=== PATIENT | female | born 1945 | race African-American/Black ===

== ENCOUNTER 2017-07-15 06:06 | Inpatient (IN) | payer OTHER, MEDICARE ==
[2017-07-15] VITALS (14 sets, daily range): BP systolic 135–180; BP diastolic 68–80; PULSE 72–85; RESP 16–28; TEMP 97.9–98.8; O2SAT 85–99
[~2017-07-15] VITALS: Ht 152.4 cm; Wt 120.6 kg
[~2017-07-15 06:06] MED LIST: AMIT25TA20 PO; BUME1TAB PO; CARV25TA PO; GABA300C3 PO; GLIP5 PO; GLUC10TA3 PO
[2017-07-15] MEDS ORDERED: RESP: ALBUTEROL 2.5 MG/IPRATROPIUM 0.5 MG NEB (PRN) ONE (06:22)
[2017-07-15] MEDS ORDERED: AZIT250T3 PO (06:31)
[2017-07-15] MEDS ORDERED: PRAV40TA2 PO (06:31)
[2017-07-15] MEDS ORDERED: AMLO10TA2 PO (06:31)
[2017-07-15] MEDS ORDERED: TRAD5TAB PO (06:31)
[2017-07-15] MEDS ORDERED: GABA100C4 PO (06:31)
--- NOTE | 2017-07-15 06:35 | PD ---
HPI Chief Complaint: Respiratory Symptoms Time Seen by Provider: 06:30 Travel History International Travel<30 days: No Contact w/Intl Traveler<30days: No Traveled to known affect area: No History of Present Illness HPI Patient is a 72-year-old female who has last few days having shortness of breath wheezing saw her, her care doctor 2 days ago and was started on azithromycin Z-Adolfo. She is not improving it is not working says the family. Patient has a history of hypertension and diabetes but she does not have any lung pathology known history. She comes in descending to 82% on room air area she is immediately put on 4 L nasal cannula and started on a DuoNeb 3. She is short of breath but able to talk in full sentences. There is no signs of accessory muscle use. She has diffuse wheeze in all orantes. With possible basilar rales This could possibly be reactive airway to a virus or it could possibly be cardiac asthma caused by CHF. She had been on hydrochlorothiazide 50 mg but she has not been on that for a while she reports. She is on amlodipine as well as a sulfonylurea for her diabetes. She denies chest pain she does feel short of breath taking azithromycin without relief for her symptoms. I will start her with duo nebs but we'll work her up for CHF PFS Past Medical History Arthritis: Yes Autoimmune Disease: No Blood Disorders: No Heart Rhythm Problems: No Cancer: No Cardiac Catheterization: Yes Cardiovascular Problems: Yes High Cholesterol: No Chest Pain: Yes Congestive Heart Failure: Yes Cerebrovascular Accident: Yes (2004 NO RESIDUAL WEAKNESS) Coronary Artery Disease: Yes Diabetes: Yes Patient Takes Glucophage: No Diminished Hearing: No Endocrine: Yes (BORDERLINE DIABETIC) Glaucoma: No Genitourinary: No Hypertension: Yes Musculoskeletal: Yes Neurologic: Yes (NEUROPATHY) Psychiatric: No Respiratory: No Integumentary: Yes (CELLULITIS) Immunizations Current: Yes Myocardial Infarction: Yes (X2) Thyroid Disease: No Influenza Vaccination: No Menopausal: Yes Past Surgical History Abdominal Surgery: Yes AICD: No Appendectomy: Yes (AGE 8) Cardiac Surgery: No Section: Yes (X 2) Ear Surgery: No Endocrine Surgery: No Eye Surgery: No Genitourinary Surgery: No Gynecologic Surgery: No Oral Surgery: No Pacemaker: No Thoracic Surgery: No Other Surgery: Yes (APPENDECTOMY AT 5 YO, AT 26YO) Social History Alcohol Use: No Tobacco Use: No Substance Use: No Allergies-Medications (Allergen,Severity, Reaction): Coded Allergies: No Known Allergies (Verified Allergy, Unknown, 07/15/17) Reported Meds & Prescriptions Reported Meds & Active Scripts Active Reported Azithromycin 250 Mg Tab 250 Mg PO DAILY Pravastatin 40 Mg Tab 40 Mg PO DAILY Amlodipine (Amlodipine Besylate) 10 Mg Tab 10 Mg PO DAILY Gabapentin 100 Mg Cap 100 Mg PO HS Tradjenta (Linagliptin) 5 Mg Tab 5 Mg PO DAILY Carvedilol 25 mg (Carvedilol) 25 Mg Tab 25 Mg PO BID Glipizide 10 Mg Tab 10 Mg PO BID Review of Systems Except as stated in HPI: all other systems reviewed are Neg Respiratory: Positive: Shortness of Breath Physical Exam Narrative GENERAL: Appears short of breath however she does not seem septic or toxic SKIN: Warm and dry. HEAD: Atraumatic. Normocephalic. EYES: Pupils equal and round. No scleral icterus. No injection or drainage. ENT: No nasal bleeding or discharge. Mucous membranes pink and moist. NECK: Trachea midline. No JVD. CARDIOVASCULAR: Regular rate and rhythm. Blood pressure is 150/78 RESPIRATORY: No accessory muscle use. Diffuse wheeze in all orantes with possible bassilar rales possibly reactive inflammation versus cardiac asthma which is more likely GASTROINTESTINAL: Abdomen soft, non-tender, nondistended. Hepatic and splenic margins not palpable. MUSCULOSKELETAL: Extremities without clubbing, cyanosis, or edema. No obvious deformities. NEUROLOGICAL: Awake and alert. No obvious cranial nerve deficits. Motor grossly within normal limits. Five out of 5 muscle strength in the arms and legs. Normal speech. PSYCHIATRIC: Appropriate mood and affect; insight and judgment normal. Data Data Last Documented VS Vital Signs Date Time Temp Pulse Resp B/P (MAP) Pulse Ox O2 Delivery O2 Flow Rate FiO2 07/15/17 07:15 83 28 163/78 (106) 97 Nasal Cannula 3.00 07/15/17 06:15 98.8 Orders Orders Complete Blood Count With Diff (07/15/17 06:22) Comprehensive Metabolic Panel (07/15/17 06:22) Troponin I (07/15/17 06:22) Lipase (07/15/17 06:22) Urinalysis - C+S If Indicated (07/15/17 06:22) Chest, Single Ap (07/15/17 06:22) Albuterol-Ipratropium Neb (Duoneb Neb) (07/15/17 06:22) B-Type Natriuretic Peptide (07/15/17 06:30) Albuterol-Ipratropium Neb (Duoneb Neb) (07/15/17 06:45) Electrocardiogram (07/15/17 ) Furosemide Inj (Lasix Inj) (07/15/17 06:45) Nitroglycerin 2% Oint (Nitroglycerin 2% (07/15/17 06:45) Urinary Catheter Insert/Apply (07/15/17 06:52) Methylprednisolone So Succ Inj (Solumedr (07/15/17 07:15) Ceftriaxone Inj (Rocephin Inj) (07/15/17 07:30) Azithromycin Inj (Zithromax Inj) (07/15/17 07:30) Influenzae A/B Antigen (07/15/17 07:29) Admit Order (Ed Use Only) (07/15/17 07:53) Labs Laboratory Tests Test 07/15/17 06:25 07/15/17 06:32 07/15/17 06:45 White Blood Count 7.6 TH/MM3 Red Blood Count 4.09 MIL/MM3 Hemoglobin 12.3 GM/DL Hematocrit 36.6 % Mean Corpuscular Volume 89.4 FL Mean Corpuscular Hemoglobin 30.0 PG Mean Corpuscular Hemoglobin Concent 33.5 % Red Cell Distribution Width 15.6 % Platelet Count 216 TH/MM3 Mean Platelet Volume 8.2 FL Neutrophils (%) (Auto) 68.4 % Lymphocytes (%) (Auto) 14.1 % Monocytes (%) (Auto) 15.6 % Eosinophils (%) (Auto) 1.4 % Basophils (%) (Auto) 0.5 % Neutrophils # (Auto) 5.2 TH/MM3 Lymphocytes # (Auto) 1.1 TH/MM3 Monocytes # (Auto) 1.2 TH/MM3 Eosinophils # (Auto) 0.1 TH/MM3 Basophils # (Auto) 0.0 TH/MM3 CBC Comment DIFF FINAL Differential Comment Blood Urea Nitrogen 25 MG/DL Creatinine 2.15 MG/DL Random Glucose 77 MG/DL Total Protein 7.9 GM/DL Albumin 3.4 GM/DL Calcium Level 8.6 MG/DL Alkaline Phosphatase 89 U/L Aspartate Amino Transf (AST/SGOT) 18 U/L Alanine Aminotransferase (ALT/SGPT) 17 U/L Total Bilirubin 0.4 MG/DL Sodium Level 138 MEQ/L Potassium Level 4.0 MEQ/L Chloride Level 103 MEQ/L Carbon Dioxide Level 27.7 MEQ/L Anion Gap 7 MEQ/L Estimat Glomerular Filtration Rate 27 ML/MIN Troponin I 0.02 NG/ML Lipase 259 U/L B-Type Natriuretic Peptide 67 PG/ML Urine Color YELLOW Urine Turbidity CLEAR Urine pH 5.5 Urine Specific [place] 1.013 Urine Protein 100 mg/dL Urine Glucose (UA) NEG mg/dL Urine Ketones NEG mg/dL Urine Occult Blood MOD Urine Nitrite NEG Urine Bilirubin NEG Urine Urobilinogen LESS THAN 2.0 MG/DL Urine Leukocyte Esterase NEG Urine RBC 1 /hpf Urine WBC LESS THAN 1 /hpf Urine Squamous Epithelial Cells <1 /hpf Urine Amorphous Sediment OCC Urine Bacteria OCC /hpf Urine Hyaline Casts 1 /lpf Urine Mucus FEW /lpf Microscopic Urinalysis Comment CULT NOT INDICATED MDM Medical Decision Making Medical Screen Exam Complete: Yes Emergency Medical Condition: Yes Interpretation(s) EKG NSR rate 73 BPM with flipped t wave in Lead aVL My interpretation is that CXR is CHF pulmonary edema --- although the Rad reading is different than my interprtation Differential Diagnosis Reactive airway versus COPD versus cardiac asthma due to CHF and fluid overload in the lungs pulmonary edema versus cardiac arrhythmia leading to chf edema other Narrative Course Patient's immediately put on nasal cannula at 4 L then she is given a DuoNeb and EKG is done which is a sinus rhythm at a rate of 73 with flips in aVL only otherwise normal EKG chest x-ray is done immediately. It is congestive heart failure her lung sound like cardiac asthma wheezing we had given her duo neb but I stop that and I switch her to 40 of Lasix IV as well as an inch of Nitropaste and have BiPAP on standby. Diagnosis Primary Impression: CHF (congestive heart failure) Qualified Codes: I50.9 - Heart failure, unspecified Admitting Information Admitting Physician Requests: Varun Clifford MD Jul 15, 2017 06:35
[2017-07-15] MEDS ORDERED: FUROSEMIDE 40 MG/4 ML VIAL IV PUSH ONE (06:45)
[2017-07-15] MEDS ORDERED: NITROGLYCERIN 2% OINT 1 GM PACKET TOPICAL ONE (06:45)
[2017-07-15] MEDS ORDERED: RESP: ALBUTEROL 2.5 MG/IPRATROPIUM 0.5 MG NEB (SCH) NEB ONE (06:45)
--- NOTE | 2017-07-15 06:51 | RADRPT ---
EXAM DATE/TIME: 07/15/2017 06:32 [place] COMPARISON: CHEST SINGLE AP, April 26, 2011, 17:36. INDICATIONS : Shortness of breath MEDICAL HISTORY : None. SURGICAL HISTORY : None. ENCOUNTER: Initial ACUITY: 1 day PAIN SCORE: 0/10 LOCATION: Bilateral chest FINDINGS: Indistinctness and fullness of the central bronchopulmonary markings, stable. Possible consolidation left lower lung. Both hemidiaphragms well delineated. Mild cardiomegaly stable. CONCLUSION: Stable appearance to the prominent and indistinct central bronchopulmonary markings. Possible new le ft lower lung consolidative infiltrate. Cristian Crawford MD on July 15, 2017 at 6:49 Board Certified Radiologist. This report was verified electronically.
[2017-07-15 06:55] LABS: AUTOMATED NEUTROPHIL # 5.2 TH/MM3 (1.8-7.7); BASOPHIL % 0.5 % (0.0-2.0); EOSINOPHIL # 0.1 TH/MM3 (0-0.4); EOSINOPHIL % 1.4 % (0.0-4.0); HEMATOCRIT 36.6 % (35.0-46.0); HEMO FLAGS DIFF FINAL; LYMPH % 14.1 % (9.0-44.0); LYMPHOCYTE # 1.1 TH/MM3 (1.0-4.8); MEAN CELL VOLUME 89.4 FL (80.0-100.0); MEAN CORPUSCULAR HGB CONC 33.5 % (32.0-36.0); MONO % 15.6 % (0.0-8.0); NEUT % 68.4 % (16.0-70.0); PLATELET COUNT 216 TH/MM3 (150-450); RED BLOOD COUNT 4.09 MIL/MM3 (4.00-5.30); RED CELL DISTRIBUTION WIDTH 15.6 % (11.6-17.2); WHITE BLOOD COUNT 7.6 TH/MM3 (4.0-11.0)
[2017-07-15 07:10] LABS: ALT (GPT) 17 U/L (10-53); ANION GAP 7 MEQ/L (5-15); AST (GOT) 18 U/L (15-37); BICARBONATE 27.7 MEQ/L (21.0-32.0); BLOOD UREA NITROGEN 25 MG/DL (7-18); CHLORIDE 103 MEQ/L (98-107); GLOMERULAR FILTRATION RATE 27 ML/MIN (>89); SODIUM (NA) 138 MEQ/L (136-145)
[2017-07-15 07:14] LABS: ALKALINE PHOSPHATASE 89 U/L (45-117); TOTAL BILIRUBIN ADULT 0.4 MG/DL (0.2-1.0)
[2017-07-15] MEDS ORDERED: methylPREDNISolone SOD SUCC 125 MG/2 ML VIAL IV PUSH ONE (07:15)
--- NOTE | 2017-07-15 07:26 | PD ---
Physical Exam Narrative Patient was Seen by ED physician and signed out to me. patient has history of CHF and reactive airway disease. Patient was on diuretic and inhaler in the past. On examination patient has moderate expiratory wheezes. Moderate rhonchi at the bases. Data Data Last Documented VS Vital Signs Date Time Temp Pulse Resp B/P (MAP) Pulse Ox O2 Delivery O2 Flow Rate FiO2 07/15/17 07:15 83 28 163/78 (106) 97 Nasal Cannula 3.00 07/15/17 06:15 98.8 Orders Orders Complete Blood Count With Diff (07/15/17 06:22) Comprehensive Metabolic Panel (07/15/17 06:22) Troponin I (07/15/17 06:22) Lipase (07/15/17 06:22) Urinalysis - C+S If Indicated (07/15/17 06:22) Chest, Single Ap (07/15/17 06:22) Albuterol-Ipratropium Neb (Duoneb Neb) (07/15/17 06:22) B-Type Natriuretic Peptide (07/15/17 06:30) Albuterol-Ipratropium Neb (Duoneb Neb) (07/15/17 06:45) Electrocardiogram (07/15/17 ) Furosemide Inj (Lasix Inj) (07/15/17 06:45) Nitroglycerin 2% Oint (Nitroglycerin 2% (07/15/17 06:45) Urinary Catheter Insert/Apply (07/15/17 06:52) Methylprednisolone So Succ Inj (Solumedr (07/15/17 07:15) Ceftriaxone Inj (Rocephin Inj) (07/15/17 07:30) Azithromycin Inj (Zithromax Inj) (07/15/17 07:30) Influenzae A/B Antigen (07/15/17 07:29) Labs Laboratory Tests Test 07/15/17 06:25 07/15/17 06:32 07/15/17 06:45 White Blood Count 7.6 TH/MM3 Red Blood Count 4.09 MIL/MM3 Hemoglobin 12.3 GM/DL Hematocrit 36.6 % Mean Corpuscular Volume 89.4 FL Mean Corpuscular Hemoglobin 30.0 PG Mean Corpuscular Hemoglobin Concent 33.5 % Red Cell Distribution Width 15.6 % Platelet Count 216 TH/MM3 Mean Platelet Volume 8.2 FL Neutrophils (%) (Auto) 68.4 % Lymphocytes (%) (Auto) 14.1 % Monocytes (%) (Auto) 15.6 % Eosinophils (%) (Auto) 1.4 % Basophils (%) (Auto) 0.5 % Neutrophils # (Auto) 5.2 TH/MM3 Lymphocytes # (Auto) 1.1 TH/MM3 Monocytes # (Auto) 1.2 TH/MM3 Eosinophils # (Auto) 0.1 TH/MM3 Basophils # (Auto) 0.0 TH/MM3 CBC Comment DIFF FINAL Differential Comment Blood Urea Nitrogen 25 MG/DL Creatinine 2.15 MG/DL Random Glucose 77 MG/DL Total Protein 7.9 GM/DL Albumin 3.4 GM/DL Calcium Level 8.6 MG/DL Alkaline Phosphatase 89 U/L Aspartate Amino Transf (AST/SGOT) 18 U/L Alanine Aminotransferase (ALT/SGPT) 17 U/L Total Bilirubin 0.4 MG/DL Sodium Level 138 MEQ/L Potassium Level 4.0 MEQ/L Chloride Level 103 MEQ/L Carbon Dioxide Level 27.7 MEQ/L Anion Gap 7 MEQ/L Estimat Glomerular Filtration Rate 27 ML/MIN Troponin I 0.02 NG/ML Lipase 259 U/L B-Type Natriuretic Peptide 67 PG/ML [facility] Supervised Visit with MIMI: No Interpretation(s) Last Impressions Chest X-Ray 07/15/17 06 Signed Impressions: Service Date/Time: July 06:32 - CONCLUSION: Stable appearance to the prominent and indistinct central bronchopulmonary markings. Possible new left lower lung consolidative infiltrate. Cristian Crawford MD 7:25 AM. CBC within normal limit. CMP within normal limit. BUN 25. Creatinine 2.15. Differential Diagnosis Differential diagnosis including acute exacerbation of reactive airway disease, CHF. Narrative Course 72-year-old female with shortness of breath. History of COPD and reactive airway disease. Patient was given Lasix 40 mg IV, DuoNeb treatment 3, and Solu -Medrol 125 mg IV. Rocephin 1 g IV. Zithromax 500 mg IV. Diagnosis Primary Impression: CHF (congestive heart failure) Qualified Codes: I50.9 - Heart failure, unspecified Additional Impression: Mild persistent reactive airway disease with acute exacerbation Admitting Information Admitting Physician Requests: Admit Hong Gonzales MD Jul 15, 2017 07:26
[2017-07-15] MEDS ORDERED: cefTRIAXone INJ 1,000 MG in SODIUM CHLORIDE 0.9% INJ 100 ML IV ONE (07:30)
[2017-07-15] MEDS ORDERED: AZITHROMYCIN INJ 500 MG in SODIUM CHLOR 0.9% 250 ML INJ 250 ML IV ONE (07:30)
[2017-07-15 07:59] LABS: BACTERIA, URINE OCC /hpf; BLOOD, URINE MOD (NEG); COMMENT (UR) CULT NOT INDICATED; CULTURE IF INDICATED CULT NOT INDICATED; GLUCOSE,URINE NEG (NEG); HYALINE CAST, URINE 1 /lpf (RARE); KETONE, URINE NEG (NEG); MUCUS URINE FEW /lpf (OCC); NITRITE,URINE NEG (NEG); PH, URINE 5.5 (5.0-8.5); SQUAMOUS EPITHELIAL CELL URINE <1 /hpf (0-5); URINE COLOR YELLOW (YELLW/STRAW)
[2017-07-15] MEDS ORDERED: SODIUM CHLORIDE 0.9% FLUSH 10 ML FLUSH IV FLUSH PRN (08:00)
[2017-07-15] MEDS: RESP: ALBUTEROL 2.5 MG/IPRATROPIUM 0.5 MG NEB (SCH) INH ×3 (09:16→20:31)
[2017-07-15] MEDS: SODIUM CHLORIDE 0.9% FLUSH 10 ML FLUSH IV FLUSH SCH ×2 (11:02→21:51)
[2017-07-15] MEDS: HEPARIN SODIUM - SQ 10,000 UNITS/ML VIAL SQ SCH ×2 (11:02→21:48)
--- NOTE | 2017-07-15 14:02 | EKG ---
Date Performed: 07/15/2017 Time Performed: 06:21:13 PTAGE: 72 years EKG: Sinus rhythm POSSIBLE ANTERIOR MYOCARDIAL INFARCTION ABNORMAL ECG Compared to prior tracing no significant change PREVIOUS TRACING : 04/26/2011 18.04 DOCTOR: Sisi Lindquist Interpretating Date/Time 07/15/2017 14:01:43
[2017-07-15] MEDS: methylPREDNISolone SOD SUCC 125 MG/2 ML VIAL IV PUSH SCH ×3 (14:15→21:48)
--- NOTE | 2017-07-15 16:10 | HHI.HP ---
HPI Service [facility] Primary Care Physician Unknown Admission Diagnosis acute exacerbation reactive airway disease. CHF. Diagnoses: Travel History International Travel<30 Days: No Contact w/Intl Traveler <30 Da: No Traveled to Known Affected Are: No History of Present Illness Pt is 72 yr old female w PMHx of CHF with ejection fraction of 35-40% per echo in August 2009, [place], diabetes, hypertension, CVA 2, hyperlipidemia, neuropathy presented to the emergency room because she had a hard time breathing and was coughing a lot. She states it all started 3 days ago however before that she started wheezing. She denies any sick contacts, she did have some sore throat which has now resolved. She denies any prior history of asthma or COPD. She states she saw a heating and ventilation engineer about 3 months ago however she does not remember the name. She is not on Lasix or an JOSUE inhibitor. She states she was taken off a diuretic which she thinks is HCTZ due to worsening of her kidney function. Her bull ladle tender is Dr. Rodriguez. Daughter at bedside and state that patient is always tired, and has shortness of breath with ambulation. Patient states that her shortness of breath is improved since management in the ER and current medications. Still wheezing. Mild nausea earlier but has resolved. No chest pains. Denies any abdominal pain, fevers or chills, runny nose. States that for the past 3 months her ankles were swelling and her PCP told her that it was due to the amlodipine. She's been off her amlodipine due to this. Review of Systems Except as stated in HPI: all other systems reviewed are Neg Past Family Social History Past Medical History CHF with ejection fraction of 35-40% per echo in August 2009, [place], diabetes, hypertension, CVA 2, hyperlipidemia, neuropathy Past Surgical History Cardiac catheterization Reported Medications Reported Meds & Active Scripts Active Reported Azithromycin 250 Mg Tab 250 Mg PO DAILY Pravastatin 40 Mg Tab 40 Mg PO DAILY Amlodipine (Amlodipine Besylate) 10 Mg Tab 10 Mg PO DAILY Gabapentin 100 Mg Cap 100 Mg PO HS Tradjenta (Linagliptin) 5 Mg Tab 5 Mg PO DAILY Carvedilol 25 mg (Carvedilol) 25 Mg Tab 25 Mg PO BID Glipizide 10 Mg Tab 10 Mg PO BID Allergies: Coded Allergies: No Known Allergies (Verified Allergy, Unknown, 07/15/17) Family History Mother had heart problems. She does not know her father's history Social History Smoking 50 years ago, used to smoke less than a pack a day for 10 years Denies any illegal drug use or alcohol use Physical Exam Vital Signs Vital Signs Date Time Temp Pulse Resp B/P (MAP) Pulse Ox O2 Delivery O2 Flow Rate FiO2 07/15/17 12:27 78 07/15/17 11:19 98.5 85 20 135/69 (91) 96 07/15/17 10:31 72 07/15/17 09:55 97.9 77 24 137/68 (91) 97 07/15/17 09:49 07/15/17 09:25 21 97 Nasal Cannula 3.00 07/15/17 09:18 95 Nasal Cannula 3.00 07/15/17 07:15 83 28 163/78 (106) 97 Nasal Cannula 3.00 07/15/17 06:34 95 Nasal Cannula 3.00 07/15/17 06:20 100 Nasal Cannula 6.00 07/15/17 06:15 98.8 73 20 172/80 (110) 99 07/15/17 06:11 98.6 79 28 180/80 (113) 85 Room Air Physical Exam GENERAL: female, obese, laying in bed SKIN: Dry skin noted on the lower extremities. HEAD: Atraumatic. Normocephalic. No temporal or scalp tenderness. EYES: Pupils equal round and reactive. Extraocular motions intact. No scleral icterus. No injection or drainage. ENT: Nose without drainage. Throat without erythema, tonsillar hypertrophy or exudate. Uvula midline. Airway patent. NECK: Trachea midline. CARDIOVASCULAR: Appears regular and no obvious murmurs noted. RESPIRATORY: Expiratory wheezes throughout noted. GASTROINTESTINAL: Abdomen soft, non-tender, nondistended, obese. No guarding. MUSCULOSKELETAL: Extremities without obvious edema. No calf tenderness. Negative Homans sign bilaterally. NEUROLOGICAL: Awake and alert. Cranial nerves II through XII intact. Motor and sensory grossly within normal limits. Five out of 5 muscle strength in all muscle groups. Normal speech. Laboratory Laboratory Tests Test 07/15/17 06:25 12/14/17 06:32 07/15/17 06:45 White Blood Count 7.6 Red Blood Count 4.09 Hemoglobin 12.3 Hematocrit 36.6 Mean Corpuscular Volume 89.4 Mean Corpuscular Hemoglobin 30.0 Mean Corpuscular Hemoglobin Concent 33.5 Red Cell Distribution Width 15.6 Platelet Count 216 Mean Platelet Volume 8.2 Neutrophils (%) (Auto) 68.4 Lymphocytes (%) (Auto) 14.1 Monocytes (%) (Auto) 15.6 Eosinophils (%) (Auto) 1.4 Basophils (%) (Auto) 0.5 Neutrophils # (Auto) 5.2 Lymphocytes # (Auto) 1.1 Monocytes # (Auto) 1.2 Eosinophils # (Auto) 0.1 Basophils # (Auto) 0.0 CBC Comment DIFF FINAL Differential Comment Blood Urea Nitrogen 25 Creatinine 2.15 Random Glucose 77 Total Protein 7.9 Albumin 3.4 Calcium Level 8.6 Alkaline Phosphatase 89 Aspartate Amino Transf (AST/SGOT) 18 Alanine Aminotransferase (ALT/SGPT) 17 Total Bilirubin 0.4 Sodium Level 138 Potassium Level 4.0 Chloride Level 103 Carbon Dioxide Level 27.7 Anion Gap 7 Estimat Glomerular Filtration Rate 27 Troponin I 0.02 Lipase 259 B-Type Natriuretic Peptide 67 Urine Color YELLOW Urine Turbidity CLEAR Urine pH 5.5 Urine Specific [place] 1.013 Urine Protein 100 Urine Glucose (UA) NEG Urine Ketones NEG Urine Occult Blood MOD Urine Nitrite NEG Urine Bilirubin NEG Urine Urobilinogen LESS THAN 2.0 Urine Leukocyte Esterase NEG Urine RBC 1 Urine WBC LESS THAN 1 Urine Squamous Epithelial Cells <1 Urine Amorphous Sediment OCC Urine Bacteria OCC Urine Hyaline Casts 1 Urine Mucus FEW Microscopic Urinalysis Comment CULT NOT INDICATED Date/Time Source Procedure Growth Status 07/15/17 07:50 Nasal Washing Influenza Types A,B Antigen ([facility]ASTA) - Final Complete Result Diagram: 07/15/17 0625 07/15/17624 Imaging Last Impressions Chest X-Ray 07/15/17621 Signed Impressions: Service Date/Time: , July 15, 2017 06:32 - CONCLUSION: Stable appearance to the prominent and indistinct central bronchopulmonary markings. Possible new left lower lung consolidative infiltrate. MD Perry Broussard VTE Risk Assessment Perry VTE Risk Assessment: Mod/High Risk (score >= 2) Caprini Risk Assessment Model Point Value = 1 Point Value = 2 Point Value = 3 Point Value = 5 Age 41-60 Minor surgery BMI > 25 kg/m2 Swollen legs Varicose veins or History of unexplained or recurrent spontaneous Oral contraceptives or hormone replacement Sepsis (< 1 month) Serious lung disease, including pneumonia (< 1 month) Abnormal pulmonary function Acute myocardial infarction Congestive heart failure (< 1 month) History of inflammatory bowel disease Medical patient at bed rest Age 61-74 Arthroscopic surgery Major open surgery (> 45 min) Laparoscopic surgery (> 45 min) Malignancy Confined to bed (> 72 hours) Immobilizing plaster cast Central venous access Age >= 75 History of VTE Family history of VTE Factor V Leiden Prothrombin [id number] Lupus anticoagulant Anticardiolipin antibodies Elevated serum homocysteine Heparin-induced thrombocytopenia Other congenital or acquired thrombophilia Stroke (< 1 month) Elective arthroplasty Hip, pelvis, or leg fracture Acute spinal cord injury (< 1 month) Prophylaxis Regimen Total Risk Factor Score Risk Level Prophylaxis Regimen 0-1 Low Early ambulation 2 Moderate Order ONE of the following: *Sequential Compression Device (SCD) *Heparin 5000 units SQ BID 3-4 Higher Order ONE of the following medications: *Heparin 5000 units SQ TID *Enoxaparin/Lovenox 40 mg SQ daily (WT < 150 kg, CrCl > 30 mL/min) *Enoxaparin/Lovenox 30 mg SQ daily (WT < 150 kg, CrCl > 10-29 mL/min) *Enoxaparin/Lovenox 30 mg SQ BID (WT < 150 kg, CrCl > 30 mL/min) AND/OR *Sequential Compression Device (SCD) 5 or more Highest Order ONE of the following medications: *Heparin 5000 units SQ TID (Preferred with Epidurals) *Enoxaparin/Lovenox 40 mg SQ daily (WT < 150 kg, CrCl > 30 mL/min) *Enoxaparin/Lovenox 30 mg SQ daily (WT < 150 kg, CrCl > 10-29 mL/min) *Enoxaparin/Lovenox 30 mg SQ BID (WT < 150 kg, CrCl > 30 mL/min) AND *Sequential Compression Device (SCD) Assessment and Plan Assessment and Plan Respiratory failure/hypoxia: Which could be from a systolic CHF exacerbation versus pneumonia versus respiratory airway disease. Patient presented to the emergency room and had O2 sats of 85% requiring 6 L of nasal nasal cannula. Patient received a dose of IV Lasix, Solu-Medrol IV, Rocephin and azithromycin. Patient has a history CHF which is documented by echocardiogram in 2009 showing an EF of 35-40%. Patient is not on any Lasix or JOSUE inhibitor. Patient states she saw a heating and ventilation engineer 3 months ago however she does not remember the name. Apparently she was taken off HCTZ due to her worsening kidney function. We'll check PFTs. If wheezing not improving will consult pulmonology. DuoNeb scheduled and as needed. Continue IV Solu-Medrol every 6 hours and taper. will need walk test prior to d/c Pneumonia: Chest x-ray concerning for left lower lobe consolidation. Patient has been afebrile, and does not have any leukocytosis. Patient received a dose of azithromycin and Rocephin. We'll continue for now. CHF: This could be contributing to patient's respiratory status, however, her BNP was only 67. We'll check a 2-D echo to assess patient's cardiac function. We'll continue to diurese patient with IV Lasix 20 mg IV daily. Monitor kidney function. Monitor potassium levels. Heart healthy diet with fluid restriction at 1500 mL per day Diabetes: Hold glipizide due to kidney function but continue tradjenta. Monitor accuchecks and cover w low dose ISS. check HbA1C. start her on low dose lisinopril for kidney protection 2.5mg po daily. diabetic diet, ADA 1999 HTN: resume amlodipine and carvedilol. Hydralazine and clonidine prn. neuropathy: resumed gabapentin. hx of CVA x2: stable DVT proph: heparin PT eval for assistance w d/c planning Code Status Full code Discussed Condition With ER physician, patient and daughter Adela Cervantes MD Jul 15, 2017 16:10
[2017-07-15] MEDS ORDERED: GLUCAGON 1 MG/ML VIAL OTHER PRN (16:30)
[2017-07-15] MEDS ORDERED: DEXTROSE 50% IN WATER 50 ML VIAL(D50) IV PUSH PRN (16:30)
[2017-07-15] MEDS ORDERED: cloNIDine HCL 0.1 MG TAB PO PRN (16:30)
[2017-07-15] MEDS ORDERED: hydrALAZINE HCL 10 MG TAB PO PRN (16:30)
[2017-07-15] MEDS ORDERED: PILL SPLITTER OTHER PRN (17:45)
[2017-07-15] MEDS: INSULIN ASPART SUPPLEMENTAL SCALE SQ SCH ×2 (18:54→21:00)
[2017-07-15] MEDS ORDERED: CARVEDILOL 25 MG PO SCH (21:00)
[2017-07-15] MEDS: CARVEDILOL 12.5 MG TAB PO SCH (21:50)
[2017-07-16] VITALS (10 sets, daily range): BP systolic 126–158; BP diastolic 60–82; PULSE 68–114; RESP 18–20; TEMP 96.5–98.5; O2SAT 93–95
[2017-07-16] MEDS: RESP: ALBUTEROL 2.5 MG/IPRATROPIUM 0.5 MG NEB (SCH) INH ×4 (03:58→22:22)
[2017-07-16] MEDS: methylPREDNISolone SOD SUCC 125 MG/2 ML VIAL IV PUSH SCH ×2 (05:33→14:04)
[2017-07-16] MEDS ORDERED: FUROSEMIDE 20 MG/2 ML VIAL IV PUSH SCH (09:00)
[2017-07-16] MEDS ORDERED: PNEUMOCOCCAL POLYVALENT INJ 25 MCG/0.5 ML SYR IM ONE (09:00)
[2017-07-16] MEDS ORDERED: NON-FORMULARY DRUG (Linagliptin (Tradjenta) 5 MG) PO SCH (09:00)
[2017-07-16] MEDS ORDERED: PT:TRADJENTA 5 MG PO SCH (09:00)
[2017-07-16] MEDS: HEPARIN SODIUM - SQ 10,000 UNITS/ML VIAL SQ SCH ×2 (09:24→21:49)
[2017-07-16] MEDS: cefTRIAXone INJ 1,000 MG in SODIUM CHLORIDE 0.9% INJ 100 ML IV SCH (09:24)
[2017-07-16] MEDS: LISINOPRIL 5 MG TAB PO SCH (09:25)
[2017-07-16] MEDS: AZITHROMYCIN 250 MG TAB PO SCH (09:26)
[2017-07-16] MEDS: PRAVASTATIN SOD 40 MG TAB PO SCH (09:26)
[2017-07-16] MEDS: CARVEDILOL 12.5 MG TAB PO SCH ×2 (09:26→21:49)
[2017-07-16] MEDS: INSULIN ASPART SUPPLEMENTAL SCALE SQ SCH ×4 (09:27→21:00)
[2017-07-16 10:05] LABS: BICARBONATE 28.6 MEQ/L (21.0-32.0); POTASSIUM 4.2 MEQ/L (3.5-5.1)
--- NOTE | 2017-07-16 12:46 | HHI.PR ---
Subjective Remarks Patient reports she is breathing slightly better today. No chest pain. Objective Vitals Vital Signs Date Time Temp Pulse Resp B/P (MAP) Pulse Ox O2 Delivery O2 Flow Rate FiO2 07/16/17 12:05 97.6 73 20 147/82 (103) 94 07/16/17 11:55 94 Nasal Cannula 2.00 07/16/17 08:06 98.1 75 20 143/64 (90) 93 07/16/17 04:00 97.9 78 20 143/67 (92) 94 07/16/17 04:00 114 07/16/17 00:00 85 07/16/17 00:00 96.5 70 20 158/73 (101) 95 07/15/17 20:36 95 Nasal Cannula 2.00 07/15/17 20:00 98.0 76 20 157/76 (103) 96 07/15/17 20:00 72 07/15/17 16:39 98.1 79 16 148/72 (97) 95 07/15/17 15:00 75 I/O 07/15/17 07/15/17 07/15/17 07/16/17 07/16/17 07/16/17 07:00 15:00 23:00 07:00 15:00 23:00 Intake Total 100 ml 120 ml Output Total 1300 ml 900 ml Balance -1200 ml -780 ml Intake Oral 120 ml IV Total 100 ml Output Urine Total 1300 ml 900 ml # Bowel Movements 0 Result Diagram: 07/15/17 0625 07/16/17 0753 Imaging Last Impressions Chest X-Ray 07/15/17 0622 Signed Impressions: Service Date/Time: July 06:32 - CONCLUSION: Stable appearance to the prominent and indistinct central bronchopulmonary markings. Possible new left lower lung consolidative infiltrate. Cristian Crawford MD Objective Remarks GENERAL: Obese female in no apparent distress. CARDIOVASCULAR: Normal rate and regular rhythm without murmurs, gallops, or rubs. RESPIRATORY: Poor air movement. Diminished breath sounds at the bases. Faint expiratory wheezing GASTROINTESTINAL: Abdomen soft, non-tender, non-distended. Normal active bowel sounds MUSCULOSKELETAL: Extremities without cyanosis, or edema. NEURO: Alert & Oriented x4 to person, place, time, situation. Moves all ext x4 PSYCH: Appropriate mood and affect. A/P Problem List: (1) COPD exacerbation ICD Code: J44.1 - Chronic obstructive pulmonary disease with (acute) exacerbation (2) Pneumonia ICD Code: J18.9 - Pneumonia, unspecified organism (3) Respiratory failure, acute ICD Code: J96.00 - Acute respiratory failure, unspecified whether with hypoxia or hypercapnia Assessment and Plan 72-year-old female admitted with respiratory failure and hypoxemia. This is likely due to combination of pneumonia and restrictive airway disease from obesity Respiratory failure/hypoxia/PNA: - Patient is improving. - Continue Rocephin and azithromycin. Change to oral steroids with prednisone 20 g by mouth twice a day. - Supplemental oxygen. Add incentive spirometer. - May need walk test tomorrow. If she continues to improve, she may be discharged with oral antibiotics and steroids tomorrow. History of CHF: BNP on admission is normal. No overt evidence of fluid overload. Last echo in 2009 showed EF of 35-40%, in 2008 she had normal EF. - Discontinue IV Lasix for now. Fluid restriction. Monitor I/O. 2-D echo pending. Diabetes: Hold glipizide due to kidney function but continue Tradjenta. Monitor accuchecks and cover w low dose ISS. check HbA1C. low dose lisinopril for kidney protection 2.5mg po daily. diabetic diet, ADA 1999 HTN: resume amlodipine and carvedilol. Hydralazine and clonidine prn. neuropathy: Continue gabapentin. hx of CVA x2: stable DVT proph: heparin Discharge Planning Possible discharge tomorrow if she continues to improve. Mike Quinn MD Jul 16, 2017 12:46
[2017-07-16] MEDS: predniSONE 20 MG TAB PO SCH (21:48)
[2017-07-16] MEDS: SODIUM CHLORIDE 0.9% FLUSH 10 ML FLUSH IV FLUSH SCH (21:49)
[2017-07-17] VITALS (14 sets, daily range): BP systolic 142–155; BP diastolic 67–97; PULSE 64–96; RESP 18–20; TEMP 98–98.7; O2SAT 94–96
[2017-07-17] MEDS: RESP: ALBUTEROL 2.5 MG/IPRATROPIUM 0.5 MG NEB (SCH) INH ×4 (05:06→21:07)
[2017-07-17] MEDS: INSULIN ASPART SUPPLEMENTAL SCALE SQ SCH ×5 (08:36→20:57)
[2017-07-17] MEDS: PRAVASTATIN SOD 40 MG TAB PO SCH (08:37)
[2017-07-17] MEDS: LISINOPRIL 5 MG TAB PO SCH (08:37)
[2017-07-17] MEDS: HEPARIN SODIUM - SQ 10,000 UNITS/ML VIAL SQ SCH ×2 (08:37→20:32)
[2017-07-17] MEDS: predniSONE 20 MG TAB PO SCH ×2 (08:37→20:32)
[2017-07-17] MEDS: AZITHROMYCIN 250 MG TAB PO SCH (08:38)
[2017-07-17] MEDS: CARVEDILOL 12.5 MG TAB PO SCH ×2 (08:38→20:32)
[2017-07-17] MEDS: cefTRIAXone INJ 1,000 MG in SODIUM CHLORIDE 0.9% INJ 100 ML IV SCH (08:39)
[2017-07-17] MEDS: SODIUM CHLORIDE 0.9% FLUSH 10 ML FLUSH IV FLUSH SCH ×2 (08:39→20:32)
[2017-07-17] MEDS: RESP: ALBUTEROL 2.5 MG/3 ML NEB (PRN) INH (12:46)
--- NOTE | 2017-07-17 13:45 | HHI.PR ---
Subjective Remarks Feeling very tired and gets short of breath with minimal activity. Still wheezing. Having spasmodic type cough. Not breathing anything up. Objective Vitals Vital Signs Date Time Temp Pulse Resp B/P (MAP) Pulse Ox O2 Delivery O2 Flow Rate FiO2 07/17/17 12:05 98.0 73 20 142/67 (92) 96 07/17/17 09:35 95 Nasal Cannula 2.00 07/17/17 08:05 98.2 69 20 155/71 (99) 95 07/17/17 08:00 64 07/17/17 04:00 75 07/17/17 04:00 98.5 72 18 147/72 (97) 95 07/17/17 00:00 98.6 68 18 153/71 (98) 96 07/16/17 22:23 95 Nasal Cannula 1.50 07/16/17 20:00 98.5 70 18 153/75 (101) 95 07/16/17 20:00 71 07/16/17 16:04 97.9 68 20 126/60 (82) 95 07/16/17 14:00 69 I/O 07/16/17 07/16/17 07/16/17 07/17/17 07/17/17 07/17/17 07:00 15:00 23:00 07:00 15:00 23:00 Intake Total 120 ml 100 ml 480 ml 200 ml Output Total 900 ml 1000 ml Balance -780 ml 100 ml -520 ml 200 ml Intake Oral 120 ml 480 ml 200 ml IV Total 100 ml Output Urine Total 900 ml 1000 ml # Bowel Movements 0 1 Result Diagram: 07/15/17 0625 07/16/17 0753 Objective Remarks GENERAL: Obese female in no apparent distress. CARDIOVASCULAR: Normal rate and regular rhythm without murmurs, gallops, or rubs. RESPIRATORY: Poor air movement. Diminished breath sounds at the bases. Faint expiratory wheezing GASTROINTESTINAL: Abdomen soft, non-tender, non-distended. Normal active bowel sounds MUSCULOSKELETAL: Extremities without cyanosis, or edema. NEURO: Alert & Oriented x4 to person, place, time, situation. Moves all ext x4 PSYCH: Appropriate mood and affect. A/P Problem List: (1) COPD exacerbation ICD Code: J44.1 - Chronic obstructive pulmonary disease with (acute) exacerbation (2) Pneumonia ICD Code: J18.9 - Pneumonia, unspecified organism (3) Respiratory failure, acute ICD Code: J96.00 - Acute respiratory failure, unspecified whether with hypoxia or hypercapnia Assessment and Plan 72-year-old female admitted with respiratory failure and hypoxemia. This is likely due to combination of pneumonia and restrictive airway disease from obesity Respiratory failure/hypoxia/PNA: - Patient is improving slowly. Need at least another day - Continue Rocephin and azithromycin. Change to oral steroids with prednisone 20 g by mouth twice a day. - Supplemental oxygen. Add incentive spirometer. -Failed oxygen walk test. Will need home oxygen. If she continues to improve she may be able to go home tomorrow with Oral antibiotics and steroids. - Discussed with the patient and her daughter at length regarding expected course of treatment and recovery. History of CHF: BNP on admission is normal. No overt evidence of fluid overload. Last echo in 2009 showed EF of 35-40%, in 2008 she had normal EF. - Fluid restriction. Monitor I/O. 2-D echo pending. Diabetes: Hold glipizide due to kidney function but continue Tradjenta. Monitor accuchecks and cover w low dose ISS. check HbA1C. low dose lisinopril for kidney protection 2.5mg po daily. diabetic diet, ADA 1999 HTN: resume amlodipine and carvedilol. Hydralazine and clonidine prn. neuropathy: Continue gabapentin. hx of CVA x2: stable DVT proph: heparin Discharge Planning Possible discharge tomorrow if she continues to improve. Will need home oxygen Problem Qualifiers (1) Pneumonia: Qualified Codes: J18.9 - Pneumonia, unspecified organism (2) Respiratory failure, acute: Qualified Codes: J96.01 - Acute respiratory failure with hypoxia Mike Quinn MD Jul 17, 2017 13:45
[2017-07-17] MEDS ORDERED: NEBULIZER1 MI1 (13:54)
[2017-07-17] MEDS: guaiFENesin E.R. 600 MG TAB PO SCH ×2 (16:10→20:32)
[2017-07-18] VITALS (8 sets, daily range): BP systolic 144–171; BP diastolic 71–83; PULSE 61–72; RESP 18–20; TEMP 97.6–98.3; O2SAT 93–96
[2017-07-18] MEDS: RESP: ALBUTEROL 2.5 MG/IPRATROPIUM 0.5 MG NEB (SCH) INH ×3 (02:23→15:59)
[2017-07-18] MEDS: RESP: ALBUTEROL 2.5 MG/3 ML NEB (PRN) INH (04:51)
[2017-07-18] MEDS: INSULIN ASPART SUPPLEMENTAL SCALE SQ SCH ×2 (08:50→12:34)
[2017-07-18] MEDS: guaiFENesin E.R. 600 MG TAB PO SCH (08:51)
[2017-07-18] MEDS: HEPARIN SODIUM - SQ 10,000 UNITS/ML VIAL SQ SCH (08:51)
[2017-07-18] MEDS: CARVEDILOL 12.5 MG TAB PO SCH (08:52)
[2017-07-18] MEDS: PRAVASTATIN SOD 40 MG TAB PO SCH (08:53)
[2017-07-18] MEDS: predniSONE 20 MG TAB PO SCH (08:53)
[2017-07-18] MEDS: LISINOPRIL 5 MG TAB PO SCH (08:53)
[2017-07-18] MEDS: cefTRIAXone INJ 1,000 MG in SODIUM CHLORIDE 0.9% INJ 100 ML IV SCH (08:56)
[2017-07-18] MEDS: SODIUM CHLORIDE 0.9% FLUSH 10 ML FLUSH IV FLUSH SCH (09:12)
[2017-07-18] MEDS ORDERED: AZIT500T2 PO (11:02)
[2017-07-18] MEDS ORDERED: PRED20 PO (11:02)
[2017-07-18] MEDS ORDERED: CEFU1TAB20 PO (11:02)
[2017-07-18] MEDS ORDERED: OXYGENDME NAS.CANULA (11:03)
--- NOTE | 2017-07-18 11:04 | HHI.DCPOC ---
Discharge Care Plan Diagnosis: (1) Hypoxemia (2) Mild persistent reactive airway disease with acute exacerbation (3) Respiratory failure, acute (4) Pneumonia Goals to Promote Your Health * To prevent worsening of your condition and complications * To maintain your health at the optimal level Directions to Meet Your Goals Take your medications as prescribed Follow your dietary instruction Follow activity as directed Keep your appointments as scheduled Take your immunizations and boosters as scheduled If your symptoms worsen call your PCP, if no PCP go to Urgent Care Center or Emergency Room Smoking is Dangerous to Your Health. Avoid second hand smoke Call the 24-hour hour crisis hotline for domestic abuse at Mike Quinn MD Jul 18, 2017 11:04
--- NOTE | 2017-07-18 11:05 | HHI.DS ---
Discharge Summary Admission Date Jul 15, 2017 at 07:54 Discharge Date: Jul 18, 2017 Admitting Diagnosis acute exacerbation reactive airway disease. CHF. (1) COPD exacerbation ICD Code: J44.1 - Chronic obstructive pulmonary disease with (acute) exacerbation (2) Pneumonia ICD Code: J18.9 - Pneumonia, unspecified organism (3) Respiratory failure, acute ICD Code: J96.00 - Acute respiratory failure, unspecified whether with hypoxia or hypercapnia Procedures None Brief History - From Admission History of present illness from the admitting physician Pt is 72 yr old female w PMHx of CHF with ejection fraction of 35-40% per echo in August 2009, [place], diabetes, hypertension, CVA 2, hyperlipidemia, neuropathy presented to the emergency room because she had a hard time breathing and was coughing a lot. She states it all started 3 days ago however before that she started wheezing. She denies any sick contacts, she did have some sore throat which has now resolved. She denies any prior history of asthma or COPD. She states she saw a manager internal about 3 months ago however she does not remember the name. She is not on Lasix or an JOSUE inhibitor. She states she was taken off a diuretic which she thinks is HCTZ due to worsening of her kidney function. Her supervisor porcelain department is Dr. Rodriguez. Daughter at bedside and state that patient is always tired, and has shortness of breath with ambulation. Patient states that her shortness of breath is improved since management in the ER and current medications. Still wheezing. Mild nausea earlier but has resolved. No chest pains. Denies any abdominal pain, fevers or chills, runny nose. States that for the past 3 months her ankles were swelling and her PCP told her that it was due to the amlodipine. She's been off her amlodipine due to this. CBC/BMP: 07/15/17 0625 07/16/17 0753 Significant Findings Laboratory Tests Test 07/16/17 07:53 Blood Urea Nitrogen 34 MG/DL (7-18) Creatinine 2.06 MG/DL (0.50-1.00) Random Glucose 225 MG/DL (74-106) Estimat Glomerular Filtration Rate 29 ML/MIN (>89) Imaging Last Impressions Chest X-Ray 07/15/17 0622 Signed Impressions: Service Date/Time: July 06:32 - CONCLUSION: Stable appearance to the prominent and indistinct central bronchopulmonary markings. Possible new left lower lung consolidative infiltrate. Cristian Crawford MD PE at Discharge GENERAL: Obese female in no apparent distress. CARDIOVASCULAR: Normal rate and regular rhythm without murmurs, gallops, or rubs. RESPIRATORY: Poor air movement. Diminished breath sounds at the bases. Faint expiratory wheezing GASTROINTESTINAL: Abdomen soft, non-tender, non-distended. Normal active bowel sounds MUSCULOSKELETAL: Extremities without cyanosis, or edema. NEURO: Alert & Oriented x4 to person, place, time, situation. Moves all ext x4 PSYCH: Appropriate mood and affect. Pt update on day of discharge Patient reports she is feeling better. Eager to go home. Wants to sleep in her own bed. Hospital Course 72-year-old female admitted with respiratory failure and hypoxemia. This is likely due to combination of pneumonia and restrictive airway disease from obesity. The patient has been treated with IV steroids, antibiotics, breathing treatments, and supplemental oxygen. She is improving and stable for discharge home. She does require oxygen. It is likely this patient has some restrictive airway disease from obesity. She is strongly advised to follow up outpatient with her PCP for referral to pulmonology for lung function studies when she is better. She is discharged on the prednisone taper, antibiotics, and oxygen. She is physically deconditioned in need of further medical education and nursing care. Home health with physical therapy has been ordered. The patient was counseled extensively regarding her obesity and the need to lose weight. Reported history of CHF: BNP normal on admission. She had no evidence of fluid overload. Her echocardiogram currently shows normal EF compared to EF of 35-40 % back in 2009. Patient is advised to continue on her chronic home medications Diabetes: Resume home oral medications Pt Condition on Discharge: Good Discharge Disposition: Discharge Home Discharge Time: > 30 minutes Discharge Instructions DIET: Follow Instructions for: Heart Healthy Diet Activities you can perform: Regular-No Restrictions Follow up Referrals: PCP Follow-up - 3-5 Days Pulmonology with Melissa Recio MD New Medications: Cefuroxime (Cefuroxime) 500 Mg Tab 500 MG PO BID for Infection, #14 TAB 0 Refills Nebulizer (Nebulizer) 1 Mis Mis EA .ROUTE DIRECTED for Breathing Treatment, #1 0 Refills Oxygen (O2) (Oxygen (O2)) Device LITER JONNA.CANULA CONTINUOUS for Prevent Hypoxemia, #2 Oxygen Concentrator Portable Gaseous 2 L/min via Nasal Canula Continuous For 99 months Prednisone (Prednisone) 20 Mg Tab 20 MG PO DIRECTED, #24 TAB 0 Refills Take 60 MG daily x 4 days, then 40 MG x 4 days, then 20 MG daily x 4 days. Lisinopril (Lisinopril) 5 Mg Tab 2.5 MG PO DAILY, #30 TAB Changed Medications: Azithromycin (Azithromycin) 500 Mg Tab 500 MG PO DAILY for Infection, #3 TAB 0 Refills (Changed from: Azithromycin 250 Mg Tab 250 Mg PO DAILY Infection Ref 0) Continued Medications: Amlodipine (Amlodipine) 10 Mg Tab 10 MG PO DAILY for Blood Pressure Management, #30 TAB 0 Refills Carvedilol 25 mg (Carvedilol 25 mg) 25 Mg Tab 25 MG PO BID Gabapentin (Gabapentin) 100 Mg Cap 100 MG PO HS, #30 CAP 0 Refills Glipizide (Glipizide) 10 Mg Tab 10 MG PO BID Linagliptin (Tradjenta) 5 Mg Tab 5 MG PO DAILY for Blood Sugar Management, #30 TAB 0 Refills Pravastatin (Pravastatin) 40 Mg Tab 40 MG PO DAILY for Cholesterol Management, #30 TAB 0 Refills Mike Quinn MD Jul 18, 2017 11:05
--- NOTE | 2017-07-18 11:33 | HHI.FF ---
Face to Face Verification Diagnosis: (1) Physical deconditioning (2) Pneumonia (3) Hypoxemia (4) Respiratory failure, acute (5) Mild persistent reactive airway disease with acute exacerbation Physical Therapy Order: Evaluate and Treat, Improve ambulation, Strength and gait training Home Health Nursing Order: Medical education Signs/symptoms of disease process Oxygen administration education Medication education-adverse effect Nursing assessment with vital signs I have seen patient Zoie Belle on 07/18/17. My clinical findings support the need for the requested home health care services because: Ltd mobility - disease progression Patient has SOB Deconditioned w/ increased weakness I certify that my clinical findings support that this patient is homebound because: Hx COPD- exertion dyspnea/weakness Need for psychosocial assistance Mike Quinn MD Jul 18, 2017 11:33
--- NOTE | 2017-07-18 13:02 | ECHRPT ---
Indication: heart failure CONCLUSIONS Normal left ventricular size with mild concentric left ventricular hypertrophy. No definite wall mo tion abnormalities. The left ventricular systolic function is normal with an estimated ejection fraction in the range of 60-65%. There is trace tricuspid valve regurgitation. Trace mitral valve regurgitation. BP: / HR: Rhythm: MEASUREMENTS (Male / Female) Normal Values Technical Quality:Good 2D ECHO LV Diastolic Diameter PLAX 4.5 cm 4.2 - 5.9 / 3.9 - 5.3 cm LV Systolic Diameter PLAX 3.2 cm IVS Diastolic Thickness 1.2 cm 0.6 - 1.0 / 0.6 - 0.9 cm LVPW Diastolic Thickness 1.1 cm 0.6 - 1.0 / 0.6 - 0.9 cm LV Relative Wall Thickness 0.5 RV Internal Dim ED PLAX 3.5 cm M-MODE Aortic Root Diameter MM 3.3 cm LA Systolic Diameter MM 4.7 cm LA Ao Ratio MM 1.4 AV Cusp Separation MM 2.1 cm DOPPLER TR Peak Velocity 247.0 cm/s TR Peak Gradient 24.4 mmHg Right Atrial Pressure 10.0 mmHg Pulmonary Artery Systolic Pressu 34.4 mmHg Right Ventricular Systolic Press 34.4 mmHg FINDINGS LEFT VENTRICLE Normal left ventricular size with mild concentric left ventricular hypertrophy. No definite wall mo tion abnormalities. The left ventricular systolic function is normal with an estimated ejection fraction in the range of 60-65%. RIGHT VENTRICLE Normal right ventricular size and systolic function. LEFT ATRIUM The left atrial size is normal. RIGHT ATRIUM The right atrial size is normal. ATRIAL SEPTUM Normal atrial septal thickness without atrial level shunting by limited color doppler interrogation. AORTA The aortic root and proximal ascending aorta are normal in size on limited imaging. MITRAL VALVE Structurally normal mitral valve. Trace mitral valve regurgitation. AORTIC VALVE Trileaflet aortic valve. No aortic valve regurgitation. No aortic valve stenosis. TRICUSPID VALVE Structurally normal tricuspid valve. There is trace tricuspid valve regurgitation. PULMONARY VALVE No pulmonary valve regurgitation or stenosis. VESSELS The inferior vena cava is normal in size. PERICARDIUM No pericardial effusion. Matthias Flores MD (Electronically Signed) Final Date:18 July 2017 13:00
[2017-07-18] MEDS ORDERED: LISI-519 PO (15:26)
== END 2017-07-18 16:20 | disposition home health service (06) | DRG 193 ==
LOC: NEPC 06:06 → NEDA 07:54 → NEPFCDU 09:42 → N04B 19:50
PROVIDERS: ADMIT Family Medicine; ATTEND Family Medicine
DX: J18.9 Pneumonia, unspecified organism (principal); J96.01 Acute respiratory failure with hypoxia; I13.0 Hypertensive heart and chronic kidney disease with heart failure and stage 1 through stage 4 chronic kidney disease, or unspecified chronic kidney disease; J44.0 Chronic obstructive pulmonary disease with (acute) lower respiratory infection; I50.20 Unspecified systolic (congestive) heart failure; J44.1 Chronic obstructive pulmonary disease with (acute) exacerbation; Z68.43 Body mass index [BMI] 50.0-59.9, adult; E11.22 Type 2 diabetes mellitus with diabetic chronic kidney disease; E11.40 Type 2 diabetes mellitus with diabetic neuropathy, unspecified; E78.5 Hyperlipidemia, unspecified; I25.2 Old myocardial infarction; E66.9 Obesity, unspecified; N18.9 Chronic kidney disease, unspecified; Z23 Encounter for immunization; Z79.84 Long term (current) use of oral hypoglycemic drugs; Z86.73 Personal history of transient ischemic attack (TIA), and cerebral infarction without residual deficits; Z87.891 Personal history of nicotine dependence
CPT/HCPCS: 71010; 80048; 80053; 81001; 82948; 83690; 83880; 84484; 85025; 87804; 90732; 93005; 93306; 94150; 94620; 94640; 94664; 96374; 96375; J0456; J0696; J1644; J1815; J1940; J2930; J7050; J7512; J7613